=== PATIENT | male | born 1965 | race Caucasian/White ===

== ENCOUNTER 2025-03-11 08:06 | Emergency (ER) | payer BC, SELFPAY ==
[2025-03-11 08:08] VITALS: BP 155/100
[2025-03-11 08:39] VITALS: BMI 45.0
--- NOTE | 2025-03-11 08:41 | ED.GENMED ---
History of Present Illness
General
Chief Complaint: Eye Problems
Source: patient
Time Seen by Provider: 03/11/25 08:30
History of Present Illness
History of Present Illness:
59-year-old male with past medical history of paroxysmal atrial fibrillation on Eliquis and hypertension presenting to the emergency department for evaluation after yesterday morning he noticed an expanding floater in the medial vision of his left
eye that has persisted and now stating that the medial and central portion of his vision he cannot see out of and only out of the periphery on the left. There is no pain associated with this, no headaches, no weakness or numbness. He denies any
chest pain or shortness of breath. He reports good compliance with all of his medications.
Past History
Past History
ED Past Medical History: Arrthythmia and HTN
ED Past Surgical History: Orthopedic
Social History
Tobacco: Non-smoker
Alcohol: None
Drug: None
Personal:
Living: with family
Review of Systems
Review of Systems
All Other Systems: ROS reviewed and negative except as documented in HPI and ROS
Phy Exam
Physical Exam
Physical Exam:
GENERAL: Alert , in no apparent distress
EYE: conjunctiva clear
Head: Normocephalic atraumatic
NECK: Supple,
ENT: mmm.
LUNGS: no acute respiratory distress
NEUROLOGICAL: Alert and oriented
SKIN: Warm and dry, skin intact.
MUSCULOSKELETAL: well perfused.
PSYCH: Normal and appropriate interaction.
Scores
Heart Failure Risk
Heart Failure Risk Score: Not Applicable
Heart Score for Chest Pain Patients
STEMI patient?: Not applicable
Withdrawal Assessment of Alcohol
Withdrawal Assessment Completed?: Not applicable
Course
Orders/Labs/Results
Orders:
Orders
03/11/25 08:31
Visual Acuity- Treatment ONCE
Vital Signs
Initial and Last Documented VS:
Initial Vital Signs
Temp Pulse Resp BP Pulse Ox
98.1 F 83 16 155/100 97
03/11/25 08:08 03/11/25 08:08 03/11/25 08:08 03/11/25 08:08 03/11/25 08:08
Last Documented Vital Signs
Temp Pulse Resp BP Pulse Ox
98.1 F 83 16 155/100 97
03/11/25 08:08 03/11/25 08:08 03/11/25 08:08 03/11/25 08:08 03/11/25 08:44
MDM/Problems Addressed
Differential Diagnosis Includes:
Retinal detachment
Vitreous humor leak
CVA/TIA
Amaurosis Fugax
GCA
MDM/Problems Addressed:
59-year-old male presenting to the ER for evaluation of painless vision disturbance out of the left eye noting increasing floater within the middle and central portion of the vision of the left eye. Visual acuity noted to be 20/50 to the right eye,
unable to see out of the left eye and 20/40 with both eyes. Tonometry measurements were 13 on the left and 17 on the right. High clinical concern for retinal detachment. Will discuss with ophthalmology.
*Pulse Oximetry
SaO2: 97
Oxygen Mode of Delivery: Room air
Patient hypoxic: no
*Critical Care Note
Total Time (30-74mins, 75-104mins- exclusive of procedures): Not Applicable
Patient Management
Discussion with other providers: [facility] Continuous Churn
Escalation/DeEscalation of care consider admission/obs:
Ophthalmology requesting patient be sent to their office and they will be in to see the patient at 9:30 AM. Patient directed to the Dr. Vivar's office.
ED Attending Note
-
Portions of this chart may have been created with voice recognition software.� Occasional wrong word or��sound alike� substitutions may have occurred due to the inherent limitations of voice recognition software.
Discharge Plan
Departure
Patient Disposition: Home (Routine Discharge)
Date of Disposition: 03/11/25
Time of Disposition: 08:49
Patient with high blood pressure during this ER visit?: Yes
Discharge Problem:
Subjective vision disturbance, left eye
Instructions: Detached retina
Referrals:
Viktor Vivar [Provider Group]
Interventions
Interventions:
*Risk Screen - Suicide Last Done: 03/11/25 08:08
*General Assessment Last Done: 03/11/25 08:08
*Neglect/Abuse Screening Last Done: 03/11/25 08:08
*ED COVID-19 Vaccine History Last Done: 03/11/25 08:40
*ED Influenza Vaccine History Last Done: 03/11/25 08:40
[facility] Fall Risk Assessment Tool Last Done: 03/11/25 08:40
*Nursing Disposition Last Done: 03/11/25 09:14
Discharge Date and Time
Discharge Date/Time: 03/11/25 09:15
Print Language: [id number]
== END 2025-03-11 09:15 | disposition home or self-care (01) ==
LOC: EMR 08:06
PROVIDERS: EMERGENCY PHYSICIAN Emergency Medicine; FAMILY PHYSICIAN Student in an Organized Health Care Education/Training Program
DX: H53.10 Unspecified subjective visual disturbances (principal); I48.0 Paroxysmal atrial fibrillation; I10 Essential (primary) hypertension; Z79.01 Long term (current) use of anticoagulants
CPT/HCPCS: 99282